=== PATIENT | male | born 1990 | race Caucasian/White ===

== ENCOUNTER 2016-10-18 21:41 | Emergency (ER) | payer OTHER ==
[~2016-10-18] VITALS: Ht 193 cm; Wt 93.1 kg
[2016-10-18 23:21] VITALS: BP 112/78
== END 2016-10-18 23:23 | disposition home or self-care (01) ==
LOC: EME 21:41
DX: S62.101A Fracture of unspecified carpal bone, right wrist, initial encounter for closed fracture (principal); V00.311A Fall from snowboard, initial encounter; Y93.23 Activity, snow (alpine) (downhill) skiing, snowboarding, sledding, tobogganing and snow tubing
CPT/HCPCS: 73110; 99281; 99283